=== PATIENT | female | born 1975 | race Caucasian/White ===

== ENCOUNTER 2023-10-23 12:01 | Outpatient (RCR) | payer BC, SELFPAY | END 2023-10-23 23:59 | disposition home or self-care (01) | LOC: RPT 12:01 | PROVIDERS: ATTENDING PHYSICIAN Urology; PRIMARYCARE PHYSICIAN Family Medicine | DX: N30.10 Interstitial cystitis (chronic) without hematuria (principal); M62.89 Other specified disorders of muscle; N81.6 Rectocele; R39.15 Urgency of urination; Z73.6 Limitation of activities due to disability | CPT/HCPCS: 97014; 97112; 97140; 97530 ==

== ENCOUNTER 2023-11-12 06:43 | Day surgery (SDC) | payer BC, SELFPAY ==
[2023-11-12 12:56] VITALS: BMI 34.8
[2023-11-12 12:57] VITALS: BP 142/87; BMI 34.8
[2023-11-12 16:39] VITALS: BP 116/80
[2023-11-12 16:45] VITALS: BP 123/83
[2023-11-12 17:00] VITALS: BP 127/82
[2023-11-12 17:15] VITALS: BP 119/81
== END 2023-11-12 17:32 | disposition home or self-care (01) ==
LOC: GI 06:43
PROVIDERS: ATTENDING PHYSICIAN Internal Medicine Gastroenterology
DX: D12.1 Benign neoplasm of appendix (principal); K64.0 First degree hemorrhoids
CPT/HCPCS: 45390; 88305

== ENCOUNTER 2023-11-18 15:03 | Outpatient (RCR) | payer BC, SELFPAY | END 2023-11-18 23:59 | disposition home or self-care (01) | LOC: RPT 15:03 | PROVIDERS: ATTENDING PHYSICIAN Urology; PRIMARYCARE PHYSICIAN Family Medicine | DX: N30.10 Interstitial cystitis (chronic) without hematuria (principal); M62.89 Other specified disorders of muscle; N81.6 Rectocele; R39.15 Urgency of urination; Z73.6 Limitation of activities due to disability | CPT/HCPCS: 97140; 97530 ==

== ENCOUNTER → 2024-04-27 06:18 | Outpatient (REF) | payer BC, SELFPAY ==
[2024-04-27 07:20] LABS: % Basophils 0.6 % (0-2); % Eosinophils 0.6 % (0-6); % Immature Granulocytes 0.6 % (0-0.5); % Lymphocytes 21.2 % (20.5-51.1); % Monocytes 9.8 % (1.7-9.3); % Neutrophils 67.2 % (42.2-75.2); Absolute Lymphocytes 1.1 10^3/uL (1.2-3.4); Absolute Monocytes 0.5 10^3/uL (0.1-0.6); Absolute Neutrophils 3.5 10^3/uL (1.4-6.5); Hematocrit 33.3 % (37.0-47.0); Mean Corpuscular Hgb 31.8 pg (27.0-31.0); Mean Corpuscular Volume 88.3 fL (81.0-99.0); Mean Platelet Volume 10.6 fL (7.4-10.4); Nucleated Red Blood Cells % 0 %; Platelet Count 204 10^3/uL (130-400); Red Blood Cell Count 3.77 10^6/uL (4.20-5.40); Red Cell Dist. Width 12.4 % (11.5-14.5); White Blood Cell Count 5.2 10^3/uL (4.8-10.8)
[2024-04-27 07:31] LABS: ALT (SGPT) 17 U/L (0-35); AST (SGOT) 24 U/L (14-36); Albumin 3.9 g/dl (3.5-5.0); Alkaline Phosphatase 28 U/L (38-126); Blood Urea Nitrogen 14 mg/dl (7-17); Calcium 9.3 mg/dl (8.4-10.2); Carbon Dioxide 26 mmol/L (22-30); Chloride 103 mmol/L (98-107); Glucose 84 mg/dl (70-99); HDL Cholesterol 54 mg/dl; LDL Cholesterol, Calculated 90 mg/dl; Potassium 4.1 mmol/L (3.5-5.1); Sodium 135 mmol/L (135-145); Total Bilirubin 0.8 mg/dl (0.2-1.3); Total Cholesterol 155 mg/dl (50-199); Total Protein 6.4 g/dl (6.3-8.2); Triglyceride 55 mg/dl (10-149); Very Low Density Lipoprotein 11 mg/dl (0-30); eGFR > 60.00
== END ==
LOC: REG 06:18
PROVIDERS: ATTENDING PHYSICIAN Family Medicine
DX: Z00.00 Encounter for general adult medical examination without abnormal findings (principal); E78.2 Mixed hyperlipidemia
CPT/HCPCS: 36415; 80053; 80061; 85025

== ENCOUNTER → 2024-04-29 08:33 | Outpatient (REF) | payer BC, SELFPAY | LOC: WDC 08:33 | PROVIDERS: ATTENDING PHYSICIAN Obstetrics & Gynecology; FAMILY PHYSICIAN Family Medicine | DX: Z12.31 Encounter for screening mammogram for malignant neoplasm of breast (principal) | CPT/HCPCS: 77063; 77067 ==

== ENCOUNTER 2024-06-02 06:20 | Day surgery (SDC) | payer BC, SELFPAY ==
[2024-06-02 11:29] VITALS: BMI 34.4
[2024-06-02 11:30] VITALS: BP 120/81; BMI 34.4
[2024-06-02 13:47] VITALS: BP 120/86
[2024-06-02 14:00] VITALS: BP 136/88
== END 2024-06-02 14:32 | disposition home or self-care (01) ==
LOC: GI 06:20
PROVIDERS: ATTENDING PHYSICIAN Internal Medicine Gastroenterology
DX: Z12.11 Encounter for screening for malignant neoplasm of colon (principal); K64.0 First degree hemorrhoids; K57.30 Diverticulosis of large intestine without perforation or abscess without bleeding; Z86.010 Personal history of colon polyps; Z98.890 Other specified postprocedural states
CPT/HCPCS: 45380; 88305; 88342

== ENCOUNTER → 2024-08-03 06:25 | Outpatient (REF) | payer BC, SELFPAY | LOC: RCS 06:25 | PROVIDERS: ATTENDING PHYSICIAN Nurse Practitioner Family; FAMILY PHYSICIAN Family Medicine | DX: I49.8 Other specified cardiac arrhythmias (principal) | CPT/HCPCS: 93225; 93226 ==

== ENCOUNTER 2024-08-17 10:24 | Outpatient (RCR) | payer BC, SELFPAY | END 2024-08-17 23:59 | disposition home or self-care (01) | LOC: RPT 10:24 | PROVIDERS: ATTENDING PHYSICIAN Nurse Practitioner Family | DX: M54.50 Low back pain, unspecified (principal); Z73.6 Limitation of activities due to disability; M51.369 Other intervertebral disc degeneration, lumbar region without mention of lumbar back pain or lower extremity pain; M62.81 Muscle weakness (generalized); R10.31 Right lower quadrant pain | CPT/HCPCS: 97110; 97162; 97530 ==

== ENCOUNTER 2024-09-17 17:04 | Outpatient (RCR) | payer BC, SELFPAY | END 2024-09-17 23:59 | disposition home or self-care (01) | LOC: RPT 17:04 | PROVIDERS: ATTENDING PHYSICIAN Nurse Practitioner Family | DX: M54.50 Low back pain, unspecified (principal); Z73.6 Limitation of activities due to disability; M51.369 Other intervertebral disc degeneration, lumbar region without mention of lumbar back pain or lower extremity pain; M62.81 Muscle weakness (generalized); R10.31 Right lower quadrant pain | CPT/HCPCS: 97110; 97530 ==

== ENCOUNTER 2024-10-01 17:07 | Outpatient (RCR) | payer BC, SELFPAY | END 2024-10-02 07:21 | disposition home or self-care (01) | LOC: RPT 17:07 | PROVIDERS: ATTENDING PHYSICIAN Nurse Practitioner Family | DX: M54.50 Low back pain, unspecified (principal); Z73.6 Limitation of activities due to disability; M51.369 Other intervertebral disc degeneration, lumbar region without mention of lumbar back pain or lower extremity pain; M62.81 Muscle weakness (generalized); R10.31 Right lower quadrant pain | CPT/HCPCS: 97110 ==

== ENCOUNTER 2025-03-16 10:45 | Outpatient (RCR) | payer BC, SELFPAY | END 2025-03-16 23:59 | disposition home or self-care (01) | LOC: RPT 10:45 | PROVIDERS: ATTENDING PHYSICIAN Physician Assistant Medical; FAMILY PHYSICIAN Family Medicine | DX: M75.31 Calcific tendinitis of right shoulder (principal); Z73.6 Limitation of activities due to disability | CPT/HCPCS: 97110; 97140; 97162 ==

== ENCOUNTER → 2025-05-04 06:50 | Outpatient (REF) | payer BC, SELFPAY | LOC: WDC 06:50 | PROVIDERS: ATTENDING PHYSICIAN Obstetrics & Gynecology; FAMILY PHYSICIAN Family Medicine | DX: Z12.31 Encounter for screening mammogram for malignant neoplasm of breast (principal) | CPT/HCPCS: 77063; 77067 ==

== ENCOUNTER → 2025-06-23 06:32 | Outpatient (REF) | payer BC, SELFPAY ==
[2025-06-23 07:08] LABS: Hematocrit 38.2 % (37.0-47.0); Hemoglobin 13.1 g/dL (12.0-16.0); Mean Corp Hgb Conc. 34.3 g/dL (33.0-37.0); Mean Corpuscular Volume 91.0 fL (81.0-99.0); Nucleated Red Blood Cells % 0 %; Platelet Count 215 10^3/uL (130-400); Red Cell Dist. Width 12.6 % (11.5-14.5)
[2025-06-23 09:36] LABS: Blood Urea Nitrogen 12 mg/dl (7-17); Calcium 9.3 mg/dl (8.4-10.2); Carbon Dioxide 29 mmol/L (22-30); Chloride 103 mmol/L (98-107); Glucose 82 mg/dl (70-99); HDL Cholesterol 65 mg/dl; LDL Cholesterol, Calculated 98 mg/dl; Potassium 4.3 mmol/L (3.5-5.1); Sodium 140 mmol/L (135-145); Very Low Density Lipoprotein 10 mg/dl (0-30); eGFR > 60.00
== END ==
LOC: REG 06:32
PROVIDERS: Internal Medicine Cardiovascular Disease; ATTENDING PHYSICIAN Physician Assistant
DX: Z00.00 Encounter for general adult medical examination without abnormal findings (principal)
CPT/HCPCS: 36415; 80048; 80061; 85025

== ENCOUNTER 2025-06-28 07:40 | Day surgery (SDC) | payer BC, SELFPAY | END 2025-06-28 12:00 | disposition home or self-care (01) | LOC: GI 07:40 | PROVIDERS: ATTENDING PHYSICIAN Internal Medicine Gastroenterology | DX: Z12.11 Encounter for screening for malignant neoplasm of colon (principal); K57.30 Diverticulosis of large intestine without perforation or abscess without bleeding; K62.89 Other specified diseases of anus and rectum; D12.1 Benign neoplasm of appendix; Z86.0101 Personal history of adenomatous and serrated colon polyps; Z98.890 Other specified postprocedural states | CPT/HCPCS: 45380; 88305 ==

== ENCOUNTER 2025-09-13 06:29 | Day surgery (SDC) | payer BC, SELFPAY ==
[2025-08-30 12:50] VITALS: BMI 29.1
--- NOTE | 2025-08-31 08:36 | PTCARENOTE ---
Abn ECG, Dr. kuhn notified, no additional interventions requested.
[2025-09-13] VITALS (9 sets, daily range): BP systolic 107–130; BP diastolic 66–78; BMI 29.1
[2025-09-13] MEDS: TYLENOL 1000 MG PO (12:00)
[2025-09-13] MEDS: NORMOSOL-R/PLASMALYTE-A 1000 IV (12:01)
--- NOTE | 2025-09-13 12:17 | HP.FOC2 ---
Focused History & Physical
Chief Complaint
HPI:
Chief Complaint: Sessile serrated polyp/lesion at the appendiceal orifice
HPI / Indication for Planned Procedure: Patient is a 50-year-old female who has been undergoing surveillance colonoscopies. There was a polyp initially identified in 2022 which was biopsied and showed a sessile serrated lesion. Subsequent
endoscopic mucosal resection was unremarkable. She has now had follow-up colonoscopy and repeat biopsy again identified a persistent sessile serrated lesion prompting surgical referral. I reviewed with the patient indications for appendectomy with
partial cuff cecectomy for removal of the area of concern. Patient presents today for scheduled operative procedure.
Relevant Past Medical History: Other (History of migraines, interstitial cystitis)
Relevant Social History: Negative
Relevant Family History: Negative
Relevant Past Surgical History: Positive for (Tonsillectomy)
Review of Systems
Review of Pertinent Systems: All Systems Negative
Medication
See Medication form for detailed medications: Yes
Medication List (including Herbals & OTC):
sumatriptan succinate 50 mg tablet (Imitrex) 100 mg PO ONCE 11/12/23
Pyridium 1 dose PO PRN PRN spasm 09/03/25
Probiotic 1 cap PO DAILY 09/13/25
Medications Reviewed: Yes
Allergies and Reactions
Patient has Allergies: No
Noted Allergies and Reactions:
Allergy/AdvReac Type Severity Reaction Status Date / Time
No Known Drug Allergies Allergy NONE Verified 09/13/25 11:47
Pertinent Physical Exam
All Other Systems: Negative
Head/Neck: Normal
Lungs: Normal
Heart: Normal
Abdomen: Normal
Extremities: Normal
Diagnosis / Assessment
50-year-old female with sessile serrated polyp at the appendiceal orifice
Plan / Procedure
Laparoscopic appendectomy with partial cecectomy (preservation of ileocecal valve)
Anesthesia/Sedation to be done by Anesthesia Provider: Yes
--- NOTE | 2025-09-13 12:19 | W.SUR.PREOP ---
Pre-Operative Surgical Note
-
I have examined this patient prior to the performance of the scheduled procedure.
The patient's condition is unchanged from the time of the current History and
Physical and the patient is able to undergo the scheduled procedure.
--- NOTE | 2025-09-13 13:56 | W.IMMPOSTOP ---
Addendum entered and electronically signed by Live Wagoner MD 09/13/25 14:06:
#[id number]
Original Note:
Surgical Immed Post Op Note
-
Primary Surgeon: Live Wagoner MD
Assisting Surgeon: Kaley Horner MD
Pre-op Diagnosis: Serrated lesion at the appendiceal orifice
Post-op Diagnosis: Serrated lesion at the appendiceal orifice
Procedure Performed: Laparoscopic appendectomy with partial cecectomy (preservation of ileocecal valve)
Anesthesia Type: GETA +0.25% Marcaine with epinephrine
Specimen / Cultures: Appendix with portion of cecum
Estimated Blood Loss: 6 mL
Complications: None immediate
Operative Findings: No incidental findings. Normal outward appearance of the appendix. Appendectomy completed with distal cuff of cecum level with ileocecal valve. MIN 60 mm and 40 mm stapler utilized. Specimen extracted at suprapubic 12 mm
trocar site.
The assistance of Michelle Horner NP was required due to the complexity of the procedure. During the procedure Michelle Horner NP assisted with managing the laparoscope for adequate visualization and closure of the surgical incision sites. I
was present for the entirety of the operative procedure.
== END 2025-09-13 15:30 | disposition home or self-care (01) ==
LOC: SDS 06:29
PROVIDERS: ATTENDING PHYSICIAN Surgery; FAMILY PHYSICIAN Physician Assistant
DX: D12.1 Benign neoplasm of appendix (principal)
CPT/HCPCS: 44970; 88307; 93005; J1335